=== PATIENT | male | born 1970 | race Caucasian/White ===

== ENCOUNTER 2017-06-29 00:19 | Emergency (ER) | payer OTHER ==
[2017-06-29 00:57] LABS: #Basophils 0.1 thou/uL (0.0-0.2); #Eosinphils 0.2 thou/uL (0.0-0.7); #Lymphocytes 2.4 thou/uL (1.20-3.40); #Monocytes 0.6 thou/uL (0.11-0.59); #Neutrophils 5.2 thou/uL (1.40-6.50); %Basophils 1.3 % (0.0-1.0); %Lymphocytes 27.9 % (21.0-51.0); %Monocytes 7.1 % (0.0-10.0); %Neutrophils 61.8 % (42.0-75.0); Hemoglobin 15.8 g/dL (14.0-18.0); Mean Corpuscular HGB CONC 36.3 g/dL (32.0-36.0); Mean Corpuscular Hemoglobin 30.8 pg (27.0-31.0); Mean Corpuscular Volume 84.9 fl (80.0-94.0); Mean Platelet Volume 7.3 fL (7.4-10.4); Platelet Count 300 thou/uL (130-400); RBC Distribution Width 11.4 % (11.5-14.5); Red Blood Cell (RBC) Count 5.14 mill/uL (4.70-6.10); White Blood Cell (WBC) Count 8.5 thou/uL (4.8-10.8)
[2017-06-29 01:19] LABS: ALT (SGPT) 32 U/L (8-55); AST (SGOT) 15 U/L (5-34); Alkaline Phosphatase 62 U/L (40-150); Anion Gap 15 mmol/L (10-20); BUN (Urea Nitrogen) 18 mg/dL (8.9-20.6); Bilirubin, Total 0.3 mg/dL (0.2-1.2); Calc. Creatinine Clearance 0 mL/min (70-130); Calcium 9.5 mg/dL (7.8-10.44); Carbon Dioxide 27 mmol/L (22-29); Chloride 102 mmol/L (98-107); Estimated GFR-MDRD 70; Globulin 2.6 g/dL (2.4-3.5); Glucose 230 mg/dL (70-105); Lipase 92 U/L (8-78); Magnesium 2.1 mg/dL (1.6-2.6); Potassium 3.8 mmol/L (3.5-5.1); Protein, Total 6.6 g/dL (6.0-8.3); Sodium 140 mmol/L (136-145)
== END 2017-06-29 02:01 | disposition home or self-care (01) ==
LOC: SCSER 00:19
DX: K29.00 Acute gastritis without bleeding (principal); E11.9 Type 2 diabetes mellitus without complications; Z79.4 Long term (current) use of insulin; Z79.899 Other long term (current) drug therapy
CPT/HCPCS: 36416; 80053; 83690; 83735; 85025; 93005; 96360

== ENCOUNTER 2017-08-01 16:11 | Emergency (ER) | payer OTHER ==
[2017-08-01] MEDS ORDERED: Ibuprofen 800 MG TAB ONE (16:39)
--- NOTE | 2017-08-01 16:50 | RAD ---
AP PELVIS ONE VIEW: 08/01/17 HISTORY: 47-year-old male with history of hip pain following a fall last night. Primarily right side pain. FINDINGS/IMPRESSION: No fracture, dislocation, or other significant acute osseous abnormality. POS: [facility]
== END 2017-08-01 16:45 | disposition home or self-care (01) ==
LOC: SCSER 16:11
DX: S70.01XA Contusion of right hip, initial encounter (principal); E11.9 Type 2 diabetes mellitus without complications; Z79.4 Long term (current) use of insulin; Z79.899 Other long term (current) drug therapy; W01.0XXA Fall on same level from slipping, tripping and stumbling without subsequent striking against object, initial encounter
CPT/HCPCS: 72170

== ENCOUNTER 2018-06-24 20:18 | Observation (INO) | payer OTHER ==
[2018-06-24 20:48] LABS: #Basophils 0.1 thou/uL (0.0-0.2); #Eosinphils 0.1 thou/uL (0.0-0.7); #Monocytes 0.6 thou/uL (0.11-0.59); #Neutrophils 4.8 thou/uL (1.40-6.50); %Basophils 1.1 % (0.0-1.0); %Eosinophils 1.1 % (0.0-10.0); %Monocytes 7.7 % (0.0-10.0); %Neutrophils 63.1 % (42.0-75.0); Hemoglobin 15.8 g/dL (14.0-18.0); Mean Corpuscular HGB CONC 34.6 g/dL (32.0-36.0); Mean Corpuscular Hemoglobin 29.8 pg (27.0-31.0); Mean Corpuscular Volume 85.9 fL (78.0-98.0); Mean Platelet Volume 7.3 fL (7.4-10.4); Platelet Count 237 thou/uL (130-400); Red Blood Cell (RBC) Count 5.32 mill/uL (4.70-6.10); White Blood Cell (WBC) Count 7.5 thou/uL (4.8-10.8)
[2018-06-24 21:06] LABS: ALT (SGPT) 27 U/L (8-55); AST (SGOT) 12 U/L (5-34); Albumin 4.1 g/dL (3.5-5.0); Alkaline Phosphatase 61 U/L (40-150); Anion Gap 17 mmol/L (10-20); BUN (Urea Nitrogen) 16 mg/dL (8.9-20.6); Bilirubin, Total 0.4 mg/dL (0.2-1.2); CK (CPK) 100 U/L (30-200); Calc. Creatinine Clearance 0 mL/min (70-130); Calcium 9.2 mg/dL (7.8-10.44); Carbon Dioxide 21 mmol/L (22-29); Chloride 101 mmol/L (98-107); Estimated GFR-MDRD 68; Globulin 2.8 g/dL (2.4-3.5); Glucose 293 mg/dL (70-105); Potassium 3.8 mmol/L (3.5-5.1); Protein, Total 6.9 g/dL (6.0-8.3); Sodium 135 mmol/L (136-145)
--- NOTE | 2018-06-24 21:17 | RAD ---
RADIOGRAPH CHEST 1 VIEW: 06/24/18 HISTORY: 48-year-old male with dyspnea. FINDINGS: There are no air space densities, pulmonary edema, pneumothorax, or cardiomegaly. The lateral costop hrenic angles are sharp. IMPRESSION: No acute cardiopulmonary findings. jn [] POS: JIN
--- NOTE | 2018-06-24 21:18 | CT ---
CT BRAIN NONCONTRAST: 06/24/18 HISTORY: 48-year-old male with altered mental status and headache. FINDINGS: There is no midline shift or any other mass effect. There is no evidence of acute intracranial hemor rhage, large cortical infarct, obstructive hydrocephalus, or extraaxial fluid collection. The calvar ium is intact. IMPRESSION: No acute intracranial findings. jn [] POS: JIN
[2018-06-24] MEDS ORDERED: Acetaminophen 500 MG TAB ONE (21:25)
[2018-06-24 21:33] LABS: Acetaminophen Less than 6.0 mcg/mL (10.0-30.0); Alcohol Less than 10 mg/dL (Less than 10); Salicylate Less than 8.0 mg/dL (15.0-30.0)
[2018-06-24] MEDS ORDERED: Aspirin 325 MG TAB ONE ×2 (22:04)
[2018-06-24 22:23] LABS: Bilirubin Negative (Negative); Blood, Urine Negative (Negative); Clarity Slightly Cloudy (Clear); Glucose, Urine (Dipstick) >=1000 mg/dL (Negative); Leukocyte Negative (Negative); Nitrite Negative (Negative); Protein, Urine (Dipstick) Negative (Neg-Trace); Urobilinogen 0.2 mg/dL (0.2-1.0); pH, Urine 5.5 (5.0-9.0)
[2018-06-24 22:32] LABS: Amphetamine Not Detected (NotDetected); Barbiturates Screen Not Detected (NotDetected); Benzodiazepine Screen Not Detected (NotDetected); Cocaine Metabolite Screen Not Detected (NotDetected); Medtox Control Line Valid? VALID (VALID); Methadone Not Detected (NotDetected); Methamphetamine Not Detected (NotDetected); Opiate Screen Not Detected (NotDetected); Oxycodone Screen Not Detected (NotDetected); Phencyclidine (PCP) Not Detected (NotDetected); THC/Cannabinoid Screen Not Detected (NotDetected); Tricyclic Screen Not Detected (NotDetected)
[2018-06-24 23:50] LABS: Troponin I Less than 0.010 ng/mL (< 0.028)
[2018-06-25 00:21] VITALS: BMI 34.2
[2018-06-25 01:00] LABS: Lactic Acid 0.9 mmol/L (0.5-2.2)
[2018-06-25 03:04] LABS: Troponin I Less than 0.010 ng/mL (< 0.028)
[2018-06-25] MEDS ORDERED: Dextrose 5% in Water 1,000 ML IV PRN ×2 (05:45→07:44)
[2018-06-25] MEDS ORDERED: Dextrose 50% Abboject 50 ML SYRINGE IVP PRN (05:45)
[2018-06-25] MEDS ORDERED: Insulin Regular 300 UNITS/3 ML VIAL SC PRN (05:45)
[2018-06-25] MEDS ORDERED: Cepastat Lozenges 1 LOZ PO PRN (07:44)
[2018-06-25] MEDS ORDERED: hydrALAZINE 20 MG/ML VIAL SLOW IVP PRN (07:44)
[2018-06-25] MEDS ORDERED: Ondansetron ODT 4 MG TAB PO PRN (07:44)
[2018-06-25] MEDS ORDERED: Ondansetron PF 4 MG/2 ML Vial IVP PRN (07:44)
[2018-06-25] MEDS ORDERED: Loratadine 10 MG TAB PO PRN (07:44)
[2018-06-25] MEDS ORDERED: Bisacodyl 10 MG SUPP PR PRN (07:44)
[2018-06-25] MEDS ORDERED: Sodium Chloride 0.65% Nasal 44 ML BOT EA NARE PRN (07:44)
[2018-06-25] MEDS ORDERED: Diabetic Tussin 200 MG/10 ML UDCUP PO PRN (07:44)
[2018-06-25] MEDS ORDERED: Dextrose 50% Abboject 50 ML SYRINGE SLOW IVP PRN (07:44)
[2018-06-25] MEDS ORDERED: Calcium Carbonate 500 MG ChewTAB PO PRN (07:44)
[2018-06-25] MEDS ORDERED: Senokot S 8.6-50 MG TAB PO PRN (07:44)
[2018-06-25] MEDS ORDERED: HumaLOG 300 UNITS/3 ML VIAL SC PRN (07:44)
[2018-06-25] MEDS ORDERED: HYDROcodone/Acetaminophen 5/325 mg Tablet PO PRN (07:44)
[2018-06-25] MEDS ORDERED: Loperamide HCl 2 MG CAP PO PRN (07:44)
[2018-06-25] MEDS ORDERED: Artificial Tears 18 DROP/0.9 ML EA EYE PRN (07:44)
[2018-06-25] MEDS ORDERED: Zolpidem Tartrate 5 MG TAB PO PRN (07:44)
[2018-06-25] MEDS ORDERED: Acetaminophen 325 MG TAB PO PRN (07:44)
[2018-06-25] MEDS ORDERED: Eucerin (Mineral Oil/Petrolatum,White) 30 gm Jar TOP PRN (07:44)
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
[2018-06-25] MEDS: Sodium Chloride 0.9% 1,000 ML IV SCH ×2 (08:55→21:07)
[2018-06-25 09:01] LABS: Hemoglobin A1c 11.2 % (4.0-6.0)
[2018-06-25] MEDS: Famotidine 20 MG TAB PO SCH ×2 (09:02→21:07)
[2018-06-25 09:13] LABS: Cardiac Risk 7.7 (Less than 4.5)
--- NOTE | 2018-06-25 12:13 | ULT ---
BILATERAL CAROTID DUPLEX ULTRASOUND: DATE: 06/25/18 HISTORY: Syncope, TIA. TECHNIQUE: Lawson scale ultrasound with color flow and spectral Doppler imaging of the extracranial carotid artery systems performed bilaterally. FINDINGS: A small amount of plaque is noted. The peak systolic velocity in the right ICA measures 72 cm/second with an end-diastolic velocity of 2 4 cm/second and a systolic ratio of 0.81. The peak systolic velocity in the left ICA measures 92 cm/second with an end-diastolic velocity of 36 cm/second and a systolic ratio of 0.98. Flow in both vertebral arteries remains antegrade. IMPRESSION: No evidence of hemodynamically significant stenosis. POS: OFF
--- NOTE | 2018-06-25 12:56 | MRI ---
[facility] brain noncontrast HISTORY: Syncope. FINDINGS: There is no evidence of acute intracranial hemorrhage or infarct. The ventricles appear nor mal in size, shape and position. There is no mass effect or shift of midline structures. Mucosal opac ification of the left mastoid air cells is apparent. IMPRESSION: No acute intracranial abnormalities are demonstrated. Mucosal thickening within the mastoid air cells. Cause is not evident.
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
[2018-06-25] MEDS: HumaLOG 300 UNITS/3 ML VIAL SC PRN ×2 (13:39→17:50)
[2018-06-25] MEDS ORDERED: Pramipexole Di-HCl 1 MG TAB PO SCH (21:00)
[2018-06-25] MEDS ORDERED: PRAMIPEXOLE DI HCL PO SCH (21:00)
[2018-06-25] MEDS ORDERED: metFORMIN 500 MG TAB PO SCH ×2 (21:00)
[2018-06-25] MEDS ORDERED: Atorvastatin Calcium 40 MG TAB PO SCH (21:00)
[2018-06-26] MEDS: Sodium Chloride 0.9% 1,000 ML IV SCH (01:40)
[2018-06-26] MEDS: HumaLOG 300 UNITS/3 ML VIAL SC PRN ×2 (06:10→12:24)
[2018-06-26] MEDS ORDERED: metFORMIN 500 MG TAB PO SCH (08:00)
[2018-06-26] MEDS ORDERED: INSULIN DETEMIR 25 UNIT SC SCH (09:00)
[2018-06-26] MEDS ORDERED: Insulin Glargine 25 UNITS in Pre-Filled Syringe 1 EACH SC SCH (09:00)
[2018-06-26] MEDS ORDERED: Aspirin 325 MG TAB PO SCH (09:00)
[2018-06-26] MEDS ORDERED: Insulin Glargine 35 UNITS in Pre-Filled Syringe 1 EACH SC SCH (09:00)
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
[2018-06-26] MEDS: Famotidine 20 MG TAB PO SCH (10:38)
--- NOTE | 2018-06-26 10:38 | PDOC.PN ---
- Subjective Encounter Start Date: 06/26/18 Encounter Start Time: 10:38 Patient seen and examined. No new complaints. No overnight events - Objective Resuscitation Status - Order Detail: 06/25/18 07:39 Resuscitation Status Routine Resuscitation Status: FULL: Full Resuscitation MAR Reviewed: Yes Vital Signs & Weight: Vital Signs (12 hours) Temp Pulse Resp BP Pulse Ox 06/26/18 07:54 97.6 F 71 16 115/69 97 06/26/18 04:00 97.4 F L 66 16 115/73 96 06/26/18 00:00 98.2 F 67 16 108/59 L 97 Weight Admit Weight 225 lb 8 oz Weight 225 lb 8 oz I&O: 06/25/18 06/26/18 06/27/18 06:59 06:59 06:59 Intake Total 240 4453 Balance 240 4453 Result Diagrams: 06/24/18 20:30 06/24/18 20:30 Additional Labs: Accuchecks 06/26/18 06/25/18 06/25/18 05:51 16:56 10:39 POC Glucose 314 H 392 H 396 H EKG Reviewed by me: Yes Phys Exam - Physical Examination Constitutional: NAD HEENT: PERRLA, moist MMs, sclera anicteric Neck: no JVD, supple Respiratory: no wheezing, no rales, no rhonchi Cardiovascular: RRR, no significant murmur, no rub Gastrointestinal: soft, non-tender, no distention, positive bowel sounds Musculoskeletal: no edema, pulses present Neurological: non-focal, normal sensation, moves all 4 limbs Lymphatic: no nodes Psychiatric: normal affect, A&O x 3 Skin: no rash, normal turgor Dx/Plan (1) TIA (transient ischemic attack) Code(s): G45.9 - TRANSIENT CEREBRAL ISCHEMIC ATTACK, UNSPECIFIED Status: Acute (2) Diabetes type 2, uncontrolled Code(s): E11.65 - TYPE 2 DIABETES MELLITUS WITH HYPERGLYCEMIA Status: Chronic (3) Dyslipidemia Code(s): E78.5 - HYPERLIPIDEMIA, UNSPECIFIED Status: Chronic (4) KINGA (obstructive sleep apnea) Code(s): G47.33 - OBSTRUCTIVE SLEEP APNEA (ADULT) (PEDIATRIC) Status: Chronic (5) Obesity (BMI 30-39.9) Code(s): E66.9 - OBESITY, UNSPECIFIED Status: Chronic - Plan cont current plan of care * medication reviewed as below * symptomatic treatment * see discharge ang. Review of Systems - Review of Systems ENT: negative: Ear Pain, Ear Discharge, Nose Pain, Nose Discharge, Nose Congestion, Mouth Pain, Mouth Swelling, Throat Pain, Throat Swelling, Other Respiratory: negative: Cough, Dry, Shortness of Breath, Hemoptysis, SOB with Excertion, Pleuritic Pain, Sputum, Wheezing Cardiovascular: negative: chest pain, palpitations, orthopnea, paroxysmal nocturnal dyspnea, edema, light headedness, other Gastrointestinal: negative: Nausea, Vomiting, Abdominal Pain, Diarrhea, Constipation, Melena, Hematochezia, Other Genitourinary: negative: Dysuria, Frequency, Incontinence, Hematuria, Retention , Other Musculoskeletal: negative: Neck Pain, Shoulder Pain, Arm Pain, Back Pain, Hand Pain, Leg Pain, Foot Pain, Other - Medications/Allergies Allergies/Adverse Reactions: Allergies Allergy/AdvReac Type Severity Reaction Status Date / Time No Known Allergies Allergy Unverified 06/25/18 01:32 Medications: Current Medications Acetaminophen (Tylenol) 650 mg PO Q4H PRN PRN Reason: Headache/Fever/Mild Pain (1-3) Hydrocodone Bitart/Acetaminophen ([place] 5/325) 1 tab PO Q4H PRN PRN Reason: Moderate Pain (4-6) Artificial Tears (Tears Naturale) 2 drop EA EYE PRN PRN PRN Reason: Dry Eyes Aspirin (Aspirin) 325 mg PO DAILY [facility] Atorvastatin Calcium (Lipitor) 40 mg PO HS [facility] Last Admin: 06/25/18 21:07 Dose: 40 mg Bisacodyl (Dulcolax) 10 mg [place] DAILYPRN PRN PRN Reason: Constipation Calcium Carbonate (Tums) 1,000 mg PO Q4H PRN PRN Reason: Heartburn or Indigestion Dextrose/Water (Dextrose 50%) 25 gm SLOW IVP PRN PRN PRN Reason: Hypoglycemia Famotidine (Pepcid) 20 mg PO BID [facility] Last Admin: 06/25/18 21:07 Dose: 20 mg Glucagon (Glucagon) 1 mg IM PRN PRN PRN Reason: Hypoglycemia Guaifenesin (Robitussin Sf) 200 mg PO Q4H PRN PRN Reason: Cough Hydralazine HCl (Apresoline) 10 mg SLOW IVP Q4H PRN PRN Reason: SBP > 180 and HR < 70 Dextrose/Water (D5w) 1,000 mls @ 0 mls/hr IV .Q0M PRN PRN Reason: Hypoglycemia Sodium Chloride (Normal Saline 0.9%) 1,000 mls @ 100 mls/hr IV .Q10H [facility] Last Admin: 06/26/18 01:40 Dose: Not Given Insulin Glargine 35 units/ (Miscellaneous Medication) 0.35 mls @ 0 mls/hr SC QAM [facility] Insulin Human Lispro (Humalog) 0 units SC .MODERATE SLIDING SC PRN PRN Reason: Moderate Correctional Scale Last Admin: 06/26/18 06:10 Dose: 8 unit Insulin Human Lispro (Humalog) 0 units SC .BEDTIME SLIDING SC PRN PRN Reason: Bedtime Correctional Scale Last Admin: 06/25/18 21:09 Dose: 5 unit Loperamide HCl (Imodium) 2 mg PO PRN PRN PRN Reason: Diarrhea/Loose Stools Loratadine (Claritin) 10 mg PO DAILYPRN PRN PRN Reason: Sinus Symptoms Metformin HCl (Glucophage) 1,000 mg PO BID-[facility] Mineral Oil/White Petrolatum (Eucerin Cream) 0 gm TOP BIDPRN PRN PRN Reason: Dry Skin Ondansetron HCl (Zofran Odt) 4 mg PO Q6H PRN PRN Reason: Nausea/Vomiting Ondansetron HCl (Zofran) 4 mg IVP Q6H PRN PRN Reason: Nausea/Vomiting Pramipexole Dihydrochloride (Mirapex) 1 mg PO HS [facility] Senna/Docusate Sodium (Senokot S) 2 tab PO BID PRN PRN Reason: Constipation Sertraline HCl (Zoloft) 25 mg PO DAILY [facility] Sodium Chloride ([place] Nasal [place] 0.65%) 0 ml EA NARE QIDPRN PRN PRN Reason: Nasal Congestion Sodium Chloride (Flush - Normal Saline) 10 ml IVF Q12HR [facility] Last Admin: 06/25/18 21:15 Dose: Not Given Sodium Chloride (Flush - Normal Saline) 10 ml IVF PRN PRN PRN Reason: Saline Flush Throat Lozenges (Cepastat Lozenges) 1 elliot PO Q2H PRN PRN Reason: Sore Throat Zolpidem Tartrate (Ambien) 5 mg PO HSPRN PRN PRN Reason: Insomnia
[2018-06-26 11:58] VITALS: BP 123/84; TEMP 97.8
[2018-06-26] MEDS ORDERED: Pramipexole Di-HCl 1 MG TAB PO SCH (21:00)
--- NOTE | 2018-06-30 09:57 | EEG ---
Referring Physician: Angelia BRADSHAW EEG # [id number] TEST TYPE: ROUTINE PORTABLE INPATIENT REPORT: AN EEG USING THE INTERNATIONAL TEN-TWENTY SYSTEM OF ELECTRODE PLACEMENT WAS PERFORMED. The best waking background is an 8 hertz alpha frequency. There is some intermittent slowing seen. No epileptiform features were present. Photic stimulation was unremarkable. IMPRESSION: THIS IS AN UNREMARKABLE EEG. Shellfish Weigher: OTILIA Production Support Consultant: EEG.IAN SOLIS
== END 2018-06-26 14:32 | disposition home or self-care (01) ==
LOC: SCSER 20:18 → 2SE 22:30
PROVIDERS: ADMIT Hospitalist; ATTEND Hospitalist
DX: G45.9 Transient cerebral ischemic attack, unspecified (principal); R41.82 Altered mental status, unspecified; R55 Syncope and collapse; I10 Essential (primary) hypertension; E66.01 Morbid (severe) obesity due to excess calories; F41.8 Other specified anxiety disorders; F32.9 Major depressive disorder, single episode, unspecified; G47.33 Obstructive sleep apnea (adult) (pediatric); E78.5 Hyperlipidemia, unspecified; Z68.34 Body mass index [BMI] 34.0-34.9, adult; Z79.82 Long term (current) use of aspirin; Z79.84 Long term (current) use of oral hypoglycemic drugs; Z79.899 Other long term (current) drug therapy
CPT/HCPCS: 36415; 36416; 70450; 70551; 71045; 80053; 80061; 80306; 80307; 81003; 82140; 82550; 83036; 83605; 84443; 84484; 85025; 90471; 90686; 90732; 93306; 93880; 95816; 95819; 96360; 96361; G0008; G0009; G0378; J1815; J1825

== ENCOUNTER 2018-07-04 23:25 | Emergency (ER) | payer OTHER ==
[2018-07-04] MEDS ORDERED: Ketorolac Tromethamine 30 MG/ML VIAL ONE (23:52)
[2018-07-04] MEDS ORDERED: Ondansetron PF 4 MG/2 ML Vial ONE (23:52)
[2018-07-05 00:17] LABS: Bilirubin Negative (Negative); Blood, Urine Negative (Negative); Clarity Clear (Clear); Glucose, Urine (Dipstick) 500 mg/dL (Negative); Leukocyte Negative (Negative); Nitrite Negative (Negative); Protein, Urine (Dipstick) Negative (Neg-Trace); Specific Gravity, Urine 1.015 (1.005-1.030)
[2018-07-05 00:33] LABS: #Basophils 0.1 thou/uL (0.0-0.2); #Eosinphils 0.2 thou/uL (0.0-0.7); #Lymphocytes 2.5 thou/uL (1.20-3.40); #Monocytes 0.6 thou/uL (0.11-0.59); #Neutrophils 5.7 thou/uL (1.40-6.50); %Basophils 1.1 % (0.0-1.0); %Eosinophils 1.9 % (0.0-10.0); %Lymphocytes 27.4 % (21.0-51.0); %Monocytes 6.8 % (0.0-10.0); %Neutrophils 62.8 % (42.0-75.0); Hemoglobin 15.2 g/dL (14.0-18.0); Mean Corpuscular HGB CONC 34.9 g/dL (32.0-36.0); Mean Corpuscular Hemoglobin 30.1 pg (27.0-31.0); Mean Corpuscular Volume 86.4 fL (78.0-98.0); Mean Platelet Volume 7.4 fL (7.4-10.4); Platelet Count 213 thou/uL (130-400); RBC Distribution Width 11.7 % (11.5-14.5); Red Blood Cell (RBC) Count 5.05 mill/uL (4.70-6.10); White Blood Cell (WBC) Count 9.1 thou/uL (4.8-10.8)
[2018-07-05 00:57] LABS: ALT (SGPT) 31 U/L (8-55); AST (SGOT) 21 U/L (5-34); Albumin 3.8 g/dL (3.5-5.0); Alkaline Phosphatase 52 U/L (40-150); Anion Gap 15 mmol/L (10-20); BUN (Urea Nitrogen) 19 mg/dL (8.9-20.6); Bilirubin, Total 0.4 mg/dL (0.2-1.2); Calc. Creatinine Clearance 0 mL/min (70-130); Calcium 9.7 mg/dL (7.8-10.44); Carbon Dioxide 26 mmol/L (22-29); Chloride 101 mmol/L (98-107); Estimated GFR-MDRD 62; Globulin 2.4 g/dL (2.4-3.5); Glucose 272 mg/dL (70-105); Potassium 3.8 mmol/L (3.5-5.1); Protein, Total 6.2 g/dL (6.0-8.3); Sodium 138 mmol/L (136-145)
--- NOTE | 2018-07-05 07:30 | CT ---
CT ABDOMEN AND PELVIS NONCONTRAST CT LUMBAR SPINE NONCONTRAST WITH REFORMATTED IMAGING: Date: 07/04/18 INDICATION: Back pain, flank pain. History of urolithiasis. Reference made to 10/24/12. FINDINGS: There is redemonstration of multiple bilateral renal calculi. There is mild right hydroureteronephros is, which is resultant of distal right ureteral calculus that measures 5.0 mm. No left side obstructi ve uropathy. Incidental note is hepatic steatosis. There is a mild anterior wedge compression fracture deformity of L1, although given mild end plate os teophytosis, and absence of surrounding, paraspinous edema, this is favored to reflect a chronic proc ess. No significant subluxation. Evaluation is otherwise limited on the basis of noncontrast technique. There are mild disk bulges at L3-4, L4-5, and L5-S1 levels. Which result in mild effacement of the th ecal sac. Mild degenerative hypertrophy of the bilateral facet joints at these levels is also demons trated. IMPRESSION: 1. Mildly obstructing 5 mm distal right ureteral calculus. 2. Numerous bilateral renal calculi are redemonstrated. 3. Mild chronic-appearing anterior wedge compression deformity of deformity of L1. POS: [facility]
--- NOTE | 2018-07-08 12:21 | CT ---
CT LUMBAR SPINE: HISTORY: Back pain. Axial images were obtained with coronal and sagittal reconstructions. FINDINGS: Multiple bilateral renal calculi seen. There continues to be a right hydroureteronephrosis with distal right ureteral calculus seen on patie nt's CT from 07/04/2018. An old compression fracture seen in the superior and inferior anterior aspect of the L1 vertebral lev el. These appear to be old. No acute lumbar spine abnormality seen. IMPRESSION: Continued presence of distal right ureteral calculus. Transcribed Date/Time: 07/08/2018 12:24 PM
== END 2018-07-05 01:12 | disposition home or self-care (01) ==
LOC: SCSER 23:25
DX: N13.2 Hydronephrosis with renal and ureteral calculous obstruction (principal); E11.9 Type 2 diabetes mellitus without complications; E78.5 Hyperlipidemia, unspecified; F32.9 Major depressive disorder, single episode, unspecified; I10 Essential (primary) hypertension; Z79.4 Long term (current) use of insulin; Z79.82 Long term (current) use of aspirin; Z79.899 Other long term (current) drug therapy
CPT/HCPCS: 72131; 74176; 80053; 81003; 85025; 96374; 96375; J1885; J2405

== ENCOUNTER 2018-08-02 13:07 | Outpatient (CLI) | payer OTHER ==
--- NOTE | 2018-08-02 14:26 | MRI ---
MRI CERVICAL SPINE WITHOUT CONTRAST:: HISTORY: Neck Pain, cervical radiculopathy. COMPARISON: None. FINDINGS: The craniocervical junction is unremarkable. Cord signal evaluation is limited by patient motion. C1-2:No significant stenosis. C2-3:Uncinate process hypertrophy results in mild right foraminal narrowing. No high-grade central ca nal or left foraminal stenosis. C3-4:No significant stenosis. C4-5: Small right paracentral disc protrusion. Slight effacement of the right ventral hemicord. Uncin ate process hypertrophy results in mild right foraminal narrowing. No high-grade left foraminal stenosis. C5-6:Broad-based left asymmetric disc protrusion with mild cord compromise and moderate central canal stenosis. Moderate left and mild right neural foraminal narrowing. C6-7: Disc bulge slightly effaces the ventral thecal sac. C7-T1:No significant stenosis. IMPRESSION: Multilevel degenerative change of cervical spine, as outlined above. Transcribed Date/Time: 08/02/2018 2:35 PM
--- NOTE | 2018-08-02 15:05 | MRI ---
MR the lumbar spine without contrast INDICATION: Lumbar back pain radiating down both lower extremities with numbness ongoing for 10 month s. COMPARISON: CT of the lumbar spine dated July 04, 2018. TECHNIQUE: Multiplanar multisequence MR images were obtained of lumbar spine without IV contrast. FINDINGS: Bone marrow: Bone marrow signal intensity appears within normal limits. There is a small suspected lluvia ny hemangioma within the central aspect of T11. Distal spinal cord and conus: Normal. The conus seen to terminate at L1. Visualized retroperitoneum and paraspinal soft tissues: Normal. Vertebral levels: L5-S1: There is no appreciable central canal or neural foraminal narrowing. There is a small broad-ba sed disc bulge. L4-5: There is a mild broad-based disc bulge with mild neural foraminal encroachment but without evid ence of impingement. L3-4: There is mild facet joint degenerative change and broad-based disc bulge. There is mild neural foraminal encroachment from the disc bulge without definite evidence of impingement. L2-3: There is a mild broad-based bulge but no appreciable central canal or neural foraminal narrowin g. L1-L2: No appreciable central canal or neural foraminal narrowing. T12-L1: No appreciable central canal or neural foraminal narrowing. IMPRESSION: 1. Mild spondylosis of the lumbar spine with mild neural foraminal encroachment at L4-5 and L3-4 due to broad-based disc bulges. No appreciable neural foraminal impingement is demonstrated.
== END 2018-08-02 13:08 | disposition home or self-care (01) ==
LOC: SCSMRI 13:07
PROVIDERS: ATTEND Neurological Surgery
DX: M47.22 Other spondylosis with radiculopathy, cervical region (principal); M48.062 Spinal stenosis, lumbar region with neurogenic claudication; M47.816 Spondylosis without myelopathy or radiculopathy, lumbar region; M51.26 Other intervertebral disc displacement, lumbar region
CPT/HCPCS: 72141; 72148

== ENCOUNTER 2018-08-22 19:06 | Emergency (ER) | payer OTHER ==
[2018-08-22] MEDS ORDERED: Ketorolac Tromethamine 30 MG/ML VIAL ONE (19:26)
[2018-08-22] MEDS ORDERED: Ondansetron PF 4 MG/2 ML Vial ONE (19:26)
[2018-08-22 19:29] LABS: Bilirubin Negative (Negative); Blood, Urine Negative (Negative); Clarity Clear (Clear); Glucose, Urine (Dipstick) 100 mg/dL (Negative); Leukocyte Trace (Negative); Nitrite Negative (Negative); Protein, Urine (Dipstick) Negative (Neg-Trace); Specific Gravity, Urine 1.015 (1.005-1.030); Urobilinogen 0.2 mg/dL (0.2-1.0); pH, Urine 7.5 (5.0-9.0)
[2018-08-22 19:31] LABS: Bacteria/HPF 1+ HPF (None Seen); RBC/HPF 0-3 HPF (0-3); Squamous Epithelial 0-3 HPF (0-3)
[2018-08-22 19:43] LABS: #Basophils 0.1 thou/uL (0.0-0.2); #Lymphocytes 1.1 thou/uL (1.20-3.40); #Monocytes 0.9 thou/uL (0.11-0.59); #Neutrophils 10.7 thou/uL (1.40-6.50); %Basophils 0.6 % (0.0-1.0); %Eosinophils 0.3 % (0.0-10.0); %Lymphocytes 8.7 % (21.0-51.0); %Monocytes 6.8 % (0.0-10.0); %Neutrophils 83.7 % (42.0-75.0); Hemoglobin 15.2 g/dL (14.0-18.0); Mean Corpuscular HGB CONC 36.5 g/dL (32.0-36.0); Mean Corpuscular Hemoglobin 31.5 pg (27.0-31.0); Mean Corpuscular Volume 86.2 fL (78.0-98.0); Mean Platelet Volume 6.3 fL (7.4-10.4); Platelet Count 236 thou/uL (130-400); RBC Distribution Width 12.4 % (11.5-14.5); Red Blood Cell (RBC) Count 4.82 mill/uL (4.70-6.10); White Blood Cell (WBC) Count 12.8 thou/uL (4.8-10.8)
[2018-08-22 19:59] LABS: ALT (SGPT) 48 U/L (8-55); AST (SGOT) 18 U/L (5-34); Alkaline Phosphatase 53 U/L (40-150); Anion Gap 15 mmol/L (10-20); BUN (Urea Nitrogen) 16 mg/dL (8.9-20.6); Bilirubin, Total 0.9 mg/dL (0.2-1.2); Calc. Creatinine Clearance 0 mL/min (70-130); Calcium 9.4 mg/dL (7.8-10.44); Carbon Dioxide 24 mmol/L (22-29); Chloride 101 mmol/L (98-107); Estimated GFR-MDRD 51; Globulin 2.7 g/dL (2.4-3.5); Glucose 169 mg/dL (70-105); Potassium 4.2 mmol/L (3.5-5.1); Protein, Total 6.7 g/dL (6.0-8.3); Sodium 136 mmol/L (136-145)
--- NOTE | 2018-08-22 21:24 | CT ---
CT ABDOMEN AND PELVIS WITHOUT CONTRAST: Date: 08/22/18 COMPARISON: 07/04/18. HISTORY: Left flank pain. History of kidney stones. TECHNIQUE: Multiple contiguous axial images were obtained in a CT of the abdomen and pelvis without contrast. Co cecelia reformats were performed. FINDINGS: There is a 5 mm calcification in the distal left ureter with mild left hydronephrosis and hydroureter . There are multiple nonshadowing calcifications in both kidneys, also measuring up to 5 mm in size. No right-sided hydronephrosis is seen. The liver, gallbladder, adrenal glands, spleen, and pancreas are unremarkable, although evaluation is limited without IV contrast. The large and small bowel are unremarkable. The appendix is unremarkable. No abdominal or pelvic lymp hadenopathy seen. Mild degenerative changes are seen in the spine. The visualized inferior thorax and abdominal wall so ft tissues are unremarkable. IMPRESSION: 1. Left distal ureteral calcification with mild left hydronephrosis. 2. Nonobstructing bilateral renal calcifications. POS: C
== END 2018-08-22 20:56 | disposition home or self-care (01) ==
LOC: SCSER 19:06
DX: N13.2 Hydronephrosis with renal and ureteral calculous obstruction (principal); E78.5 Hyperlipidemia, unspecified; E11.9 Type 2 diabetes mellitus without complications; I10 Essential (primary) hypertension; Z79.82 Long term (current) use of aspirin; Z79.899 Other long term (current) drug therapy
CPT/HCPCS: 74176; 80053; 81003; 81015; 85025; 96374; 96375; J1885; J2405

== ENCOUNTER 2019-01-17 07:18 | Day surgery (SDC) | payer OTHER ==
[2019-01-14 09:18] VITALS: BMI 34.9
[2019-01-17 08:33] LABS: #Eosinphils 0.3 thou/uL (0.0-0.7); #Lymphocytes 1.7 thou/uL (1.20-3.40); #Monocytes 0.5 thou/uL (0.11-0.59); #Neutrophils 4.7 thou/uL (1.40-6.50); %Basophils 0.3 % (0.0-1.0); %Eosinophils 3.5 % (0.0-10.0); %Lymphocytes 24.3 % (21.0-51.0); %Monocytes 7.1 % (0.0-10.0); %Neutrophils 64.8 % (42.0-75.0); Hemoglobin 15.3 g/dL (14.0-18.0); Mean Corpuscular HGB CONC 35.3 g/dL (32.0-36.0); Mean Corpuscular Hemoglobin 31.6 pg (27.0-31.0); Mean Corpuscular Volume 89.6 fL (78.0-98.0); Mean Platelet Volume 7.2 fL (7.4-10.4); Platelet Count 235 thou/uL (130-400); Red Blood Cell (RBC) Count 4.83 mill/uL (4.70-6.10); White Blood Cell (WBC) Count 7.2 thou/uL (4.8-10.8)
[2019-01-17 08:52] LABS: Anion Gap 12 mmol/L (10-20); BUN (Urea Nitrogen) 15 mg/dL (8.9-20.6); Calc. Creatinine Clearance 130 mL/min (70-130); Carbon Dioxide 25 mmol/L (22-29); Chloride 100 mmol/L (98-107); Estimated GFR-MDRD 77; Glucose 266 mg/dL (70-105); Potassium 3.7 mmol/L (3.5-5.1); Sodium 133 mmol/L (136-145)
[2019-01-17] MEDS ORDERED: Sodium Chloride 0.9% 10 ML ONE (10:44)
[2019-01-17] MEDS ORDERED: Fentanyl 100 MCG/2 ML VIAL ONE ×3 (10:47→12:39)
[2019-01-17] MEDS ORDERED: Midazolam HCl 2 mg/2 ml Vial ONE (10:47)
[2019-01-17] MEDS ORDERED: Insulin Regular 300 UNITS/3 ML VIAL ONE (10:56)
--- NOTE | 2019-01-17 12:27 | OP ---
DATE OF PROCEDURE: 01/17/2019 PHYSICIAN EXTENDER: Jaime Velásquez PA-C PROCEDURES PERFORMED: Anterior cervical diskectomy C5-C6, interbody arthrodesis, intervertebral biomechanical device, local morselized autograft, demineralized bone matrix, and anterior titanium instrumentation C5-C6. DESCRIPTION OF PROCEDURE: The patient was brought to the operating room and intubated. He was positioned supine with head in modest extension on a gel-filled donut. Incision was made in the right precervical area and dissected medial to the sternocleidomastoid muscle, identified the anterior cervical spine and the level was confirmed by x-ray. We placed distraction across C5-C6, completely removed the intervertebral disk decompressing the neural elements. Bony endplates were then decorticated for the purpose of arthrodesis and appropriate-sized intervertebral biomechanical PEEK device was brought into the field, filled with demineralized bone matrix and local morselized autograft, and tapped in place securely at C5-C6. Next, an anterior plate was brought into the field and secured to C5 and C6 using two 14 mm screws at each level. The wound was then extensively irrigated. MAC hemostasis was secured. The wound was closed in anatomic layers. Job ID: [id number]
[2019-01-17] MEDS ORDERED: HYDROcodone/Acetaminophen 5/325 mg Tablet ONE (14:16)
== END 2019-01-17 14:30 | disposition home or self-care (01) ==
LOC: SDC 07:18
PROVIDERS: ATTEND Neurological Surgery
PROC: 0RT30ZZ Resection of Cervical Vertebral Disc, Open Approach (ICD-10-PCS; principal; 2019-01-17)
PROC: 0RG10A0 Fusion of Cervical Vertebral Joint with Interbody Fusion Device, Anterior Approach, Anterior Column, Open Approach (ICD-10-PCS; principal; 2019-01-17)
DX: M47.22 Other spondylosis with radiculopathy, cervical region (principal); M50.122 Cervical disc disorder at C5-C6 level with radiculopathy; I10 Essential (primary) hypertension; E11.9 Type 2 diabetes mellitus without complications; Z79.4 Long term (current) use of insulin; Z79.899 Other long term (current) drug therapy
CPT/HCPCS: 36415; 36416; 76000; 80048; 85025; 93005; 93010; J0690; J1815; J2250; J3010; J3490

== ENCOUNTER 2019-02-01 11:06 | Outpatient (CLI) | payer OTHER ==
--- NOTE | 2019-02-01 11:30 | RAD ---
XR Cerv Sp Ap Lat STANDARD HISTORY: Follow-up postsurgery. Surgery reportedly 2 weeks ago. COMPARISON: None. FINDINGS: The vertebral bodies are normal in height. Anterior cervical fusion is noted with plate and screws at the C5-6 level. There is mild retropharyngeal soft tissue swelling. No other significant findings. IMPRESSION: Postop anterior cervical fusion at C5-6 still with retropharyngeal soft tissue swelling.
== END 2019-02-01 11:07 | disposition home or self-care (01) ==
LOC: TBSIIMAG 11:06
PROVIDERS: ATTEND Neurological Surgery
DX: M54.12 Radiculopathy, cervical region (principal); M79.89 Other specified soft tissue disorders; Z98.1 Arthrodesis status
CPT/HCPCS: 72040

== ENCOUNTER 2019-03-16 13:49 | Outpatient (CLI) | payer OTHER ==
--- NOTE | 2019-03-17 09:03 | RAD ---
EXAM: XR Cerv Sp Ap Lat STANDARD PROVIDED CLINICAL HISTORY: Cervical spondylosis without myelopathy. History of prior cervical spine surgery. COMPARISON: Limited 08/16/2018. FINDINGS: Postsurgical changes related to anterior cervical fusion are again noted with anterior plate and scre ws again transfixing the C5-6 level. No hardware complication is seen. Vertebral body heights and intervertebral disc spaces are within normal limits. Intradiscal prosthesis is present at C5-6 level. Prevertebral soft tissues again appear mildly increased. IMPRESSION: Stable postoperative changes related to anterior cervical fusion at the C5-6 level with stable mild p revertebral soft tissue swelling again present.
== END 2019-03-16 13:50 | disposition home or self-care (01) ==
LOC: BICRAD 13:49
PROVIDERS: ATTEND Neurological Surgery
DX: M47.812 Spondylosis without myelopathy or radiculopathy, cervical region (principal); Z98.890 Other specified postprocedural states; Z98.1 Arthrodesis status
CPT/HCPCS: 72040

== ENCOUNTER 2020-01-04 18:30 | Inpatient (IN) | payer OTHER ==
[2020-01-05] MEDS ORDERED: Morphine 4 MG/ML VIAL SLOW IVP PRN (00:37)
[2020-01-05] MEDS ORDERED: Ketorolac Tromethamine 30 MG/ML VIAL IVP PRN ×2 (00:38→06:24)
[2020-01-05] MEDS ORDERED: Ondansetron PF 4 MG/2 ML Vial IVP PRN ×2 (00:45→06:08)
[2020-01-05] MEDS ORDERED: Acetaminophen 325 MG TAB PO PRN ×2 (00:45→06:08)
[2020-01-05] MEDS ORDERED: Ondansetron ODT 4 MG TAB SL PRN (00:45)
[2020-01-05] MEDS ORDERED: Sodium Chloride 0.9% 1,000 ML IV SCH ×2 (00:45→06:30)
[2020-01-05] MEDS ORDERED: HYDROcodone/Acetaminophen 5/325 mg Tablet PO PRN ×3 (00:45→06:08)
[2020-01-05] MEDS ORDERED: Ketorolac Tromethamine 30 MG/ML VIAL ONE (02:19)
[2020-01-05] MEDS ORDERED: cefTRIAXone\\ROCEPHIN 1 GM VIAL ONE (02:20)
[2020-01-05] MEDS: Sodium Chloride 0.9% 1,000 ML IV SCH ×3 (02:25→21:41)
[2020-01-05] MEDS ORDERED: Morphine 2 MG/ML VIAL SLOW IVP PRN ×2 (06:08→06:23)
[2020-01-05] MEDS ORDERED: Guaifenesin DM 100-10/5 ML UDCUP PO PRN (06:08)
[2020-01-05] MEDS ORDERED: cloNIDine 0.1 MG TAB PO PRN (06:08)
[2020-01-05] MEDS ORDERED: hydrALAZINE 20 MG/ML VIAL SLOW IVP PRN (06:08)
[2020-01-05] MEDS ORDERED: Labetalol HCl 100 MG/20 ML VIAL SLOW IVP PRN (06:08)
[2020-01-05] MEDS ORDERED: Promethazine HCl 12.5 MG in Sodium Chloride 0.9% 50 ML IVPB PRN (06:08)
[2020-01-05] MEDS ORDERED: Dextrose 50% Abboject 50 ML SYRINGE SLOW IVP PRN (06:09)
[2020-01-05] MEDS ORDERED: Dextrose 5% in Water 1,000 ML IV PRN (06:09)
[2020-01-05] MEDS ORDERED: Electrolyte Replacement Protoc 1 EACH EACH FS SCH (06:15)
--- NOTE | 2020-01-05 06:21 | PDOC.HHP ---
Hospitalist HPI - History of Present Illness L abdominal/flank pain History of Present Illness: Patient is a 49 year old male with PMH T2DM who presents as transfer from [facility] for L sided abdominal/flank pain. Pain began this afternoon, associated with nausea and vomiting, 10/10, has a history of kidney stones. Imaging there revealed large L sided urethral stone w/ obstructive uropathy and hydronephrosis. pain somewhat responded to toradol and morphine but in general remains uncontrolled. ED physician discussed with Dr Parikh who requested patient transfer to this campus for consultation and surgical intervention likely today. Hospitalist ROS - Review of Systems Constitutional: denies: fever, chills, sweats, weakness, malaise, other Eyes: denies: pain, vision change, conjunctivae inflammation, eyelid inflammation, redness, other ENT: denies: ear pain, ear discharge, nose pain, nose discharge, nose congestion, mouth pain, mouth swelling, throat pain, throat swelling, other Respiratory: denies: cough, dry, shortness of breath, hemoptysis, SOB with excertion, pleuritic pain, sputum, wheezing, other Cardiovascular: denies: chest pain, palpitations, orthopnea, paroxysmal noc. dyspnea, edema, light headedness, other Gastrointestinal: reports: nausea, vomiting, abdominal pain. denies: diarrhea, constipation, melena, hematochezia, other Genitourinary: reports: other (L flank pain). denies: dysuria, frequency, incontinence, hematuria, retention Musculoskeletal: denies: neck pain, shoulder pain, arm pain, back pain, hand pain, leg pain, foot pain, other Skin: denies: rash, lesions, patrick, bruising, other Neurological: denies: weakness, numbness, incoordination, change in speech, confusion, seizures, other All other systems reviewed; all pertinent +/- noted in HPI/Subj - Medication Medications: reviewed, see transfer documents for details. Hospitalist History - Past Medical History Other Medical History: kidney stone, hld, t2dm, htn - Past Surgical History Other Surgical History: elbow, r knee surgery - Family History Family History: reports: no pertinent history - Social History Alcohol: reports: None Drugs: reports: none - Exam General Appearance: NAD, awake alert Eye: PERRL, anicteric sclera ENT: normocephalic atraumatic, no oropharyngeal lesions, moist mucosa Neck: supple, symmetric, no JVD, no thyromegaly, no lymphadenopathy, no carotid bruit Heart: RRR, no murmur, no gallops, no rubs, normal peripheral pulses Respiratory: CTAB, no wheezes, no rales, no ronchi, normal chest expansion, no tachypnea, normal percussion Gastrointestinal: soft, non-distended, normal bowel sounds, no palpable masses, no hepatomegaly, no splenomegaly, no bruit Gastrointestinal - other findings: L sided abdominal and L CVA tenderness, no guarding or peritoneal signs. Extremities: no cyanosis, no clubbing, no edema Skin: normal turgor, no lesions, no rashes Neurological: cranial nerve grossly intact, normal sensation to touch, no weakness, no focal deficits, no new deficit Musculoskeletal: normal tone, normal strength, no muscle wasting Psychiatric: normal affect, normal behavior, A&O x 3 Hospitalist Results - Labs Lab results: labs, imaging reports, ed documents from outside hospital reviewed Hospitalist H&P A/P - Plan Plan: Patient is a 49 year old male with PMH T2DM who presents as transfer from [facility] for L sided abdominal/flank pain. # L ureterovesicular junction stone w/ obstructive uropathy Pain began this afternoon, associated with nausea and vomiting, /, has a history of kidney stones. Imaging at [facility] revealed large L sided urethral stone w/ obstructive uropathy and hydronephrosis. pain somewhat responded to toradol and morphine but in general remains uncontrolled. ED physician discussed with Dr Parikh who requested patient transfer to this campus for consultation and surgical intervention likely today. - admit to floor - monitor off abx, no infection on UA - consult urology - prn pain/nausea medications - IVF # DM w/ hyperglycemia - continue home insulin lantus 60 units a day but split into 30 units twice a day - start mild sliding scale while npo, may need to increase if does not control # TORIN vs stage 2 CKD - may be due to uropathy, follow renal function # HTN # HLD PRN HTN medications, continue home medications DVT/GI ppx
[2020-01-05] MEDS ORDERED: cefTRIAXone\\ROCEPHIN 1 GM in Sodium Chloride 0.9% 100 ML IVPB SCH (06:30)
[2020-01-05] MEDS: HumaLOG 300 UNITS/3 ML VIAL SC PRN ×4 (07:26→21:35)
[2020-01-05] MEDS: Polyethylene Glycol 3350 17 GM Packet PO SCH (09:02)
[2020-01-05] MEDS: Famotidine 20 MG TAB PO SCH ×2 (09:02→21:34)
[2020-01-05] MEDS: Insulin Glargine 30 UNITS in Pre-Filled Syringe 1 EACH SC SCH ×2 (09:05→21:34)
--- NOTE | 2020-01-05 09:21 | CON ---
DATE OF CONSULTATION: 01/05/2020 REASON FOR CONSULT: Left ureteral stone. CHIEF COMPLAINT: Left flank pain. HISTORY OF PRESENT ILLNESS: This is a 49-year-old male who developed acute onset left-sided flank pain yesterday afternoon associated with nausea, radiating towards his left groin, up to 10/10. He was seen in the emergency room in [place], where workup identified a 6 mm obstructing distal left ureteral stone with a smaller stone just behind this. Pain was poorly controlled and creatinine was 1.5. He did have uncontrolled blood sugar, and for this reason was admitted to the hospitalist service. However, he did have to be transferred to [place] as appropriate equipment for treating kidney stones is not available in [place] currently. In speaking with the patient this morning, his pain has been better controlled with medications, but he does continue to have intermittent left-sided flank pain with intermittent nausea. He has only voided once overnight, but denies dysuria, suprapubic pain, or fevers. He does have a long history of recurrent stones, passing numerous stones throughout his life. He is unaware of any specific therapy that he should be following to help reduce his risk of stones. He has seen a urologist once, but does not want to return to them. He has no history of stone surgery. PAST MEDICAL HISTORY: Kidney stones, diabetes, hypertension, and hyperlipidemia. PAST SURGICAL HISTORY: Elbow and knee surgery. FAMILY HISTORY: Reviewed, noncontributory. SOCIAL HISTORY: Nonsmoker. No substance abuse. CURRENT MEDICATIONS: 1. Lisinopril. 2. Metformin. 3. Atorvastatin. REVIEW OF SYSTEMS: 12-point review of systems performed, negative except as mentioned in my HPI. PHYSICAL EXAMINATION: VITAL SIGNS: Afebrile. Vitals are stable. GENERAL: No acute distress, conversant. HEENT: Head: Normocephalic and atraumatic. Extraocular movements are intact. Sclerae are anicteric. NECK: Supple. Trachea is midline. LUNGS: Unlabored breathing. Symmetric chest expansion. HEART: Regular rate and rhythm. ABDOMEN: Soft, nontender, and nondistended. No flank tenderness or suprapubic tenderness. SKIN: Warm and dry. NEUROLOGIC: Alert and orient x3. PSYCHIATRIC: Normal mood and affect. No peripheral edema or cyanosis. LABORATORY DATA: Reviewed. Creatinine 1.55. Hemoglobin A1c 11.2. White count 7.8. Urinalysis: Negative leukocyte esterase or nitrite. IMAGING DATA: I personally reviewed his CT scan, which does show scattered stones throughout both kidneys as well as left hydronephrosis and hydroureter down to the distal ureter, where he has a 6 mm stone near the UVJ and a 2 to 3 mm stone slightly proximal. ASSESSMENT AND PLAN: 1. Obstructing left ureteral stone. 2. Bilateral renal stones. 3. Acute kidney injury. Continue IV hydration. Strain all urine. We will need to confirm that his acute kidney injury improves after treatment of the stones. He and I discussed his options at this point, and given the elevated creatinine as well as his continued pain, we have decided to proceed with ureteroscopy. I explained this procedure in detail including the expected postoperative course and the risks of bleeding, infection, pain, and inability to access or clear the stone, ureteral injury, ureteral stricture formation, and need for further procedures. I also explained that he would have a stent afterwards that he will likely remove after 3 to 5 days himself. However, this may need to remain for up to 2 or 3 weeks, at which point I would remove it in the office. He expressed understanding of the risks and the plan and wishes to proceed. COVID testing was not performed in the emergency room yesterday and so is being sent now. However, given his acute kidney injury, I am not certain that we can wait on this test. Greater than 80 minutes was spent in patient care, over half of which was spent [id number]. Job ID: [id number] [facility]
[2020-01-05] MEDS ORDERED: Insulin Glargine 15 UNITS in Pre-Filled Syringe 1 EACH SC SCH (10:30)
[2020-01-05 13:56] LABS: Anion Gap 11 mmol/L (10-20); BUN (Urea Nitrogen) 20 mg/dL (8.9-20.6); Calc. Creatinine Clearance 83 mL/min (70-130); Calcium 8.2 mg/dL (7.8-10.44); Carbon Dioxide 27 mmol/L (22-29); Chloride 104 mmol/L (98-107); Estimated GFR-MDRD 52; Glucose 218 mg/dL (70-105); Potassium 3.9 mmol/L (3.5-5.1); Sodium 138 mmol/L (136-145)
[2020-01-05 17:34] LABS: SARS-CoV-2 MS2 Positive; SARS-CoV-2 N Gene Negative; SARS-CoV-2 S Gene Negative; SARS-CoV-2 by NAA Not Detected (NotDetected); SARS-CoV-2 orf1ab Negative
[2020-01-05] MEDS ORDERED: Atorvastatin Calcium 40 MG TAB PO SCH (21:00)
[2020-01-05] MEDS ORDERED: Enoxaparin Sodium 30 MG/0.3 ML SYRINGE SC SCH (21:00)
[2020-01-05] MEDS: Pramipexole Di-HCl 1 MG TAB PO SCH (21:33)
[2020-01-06] MEDS: HumaLOG 300 UNITS/3 ML VIAL SC PRN ×2 (06:21→13:19)
[2020-01-06 06:39] LABS: #Eosinphils 0.2 thou/uL (0.0-0.7); #Lymphocytes 2.2 thou/uL (1.20-3.40); #Monocytes 0.5 thou/uL (0.11-0.59); #Neutrophils 4.5 thou/uL (1.40-6.50); %Basophils 0.6 % (0.0-1.0); %Eosinophils 2.2 % (0.0-10.0); %Lymphocytes 29.7 % (21.0-51.0); %Monocytes 6.3 % (0.0-10.0); %Neutrophils 61.2 % (42.0-75.0); Hemoglobin 14.7 g/dL (14.0-18.0); Mean Corpuscular HGB CONC 35.4 g/dL (32.0-36.0); Mean Corpuscular Hemoglobin 32.3 pg (27.0-31.0); Mean Corpuscular Volume 91.1 fL (78.0-98.0); Mean Platelet Volume 7.5 fL (7.4-10.4); Platelet Count 204 thou/uL (130-400); RBC Distribution Width 12.2 % (11.5-14.5); Red Blood Cell (RBC) Count 4.56 mill/uL (4.70-6.10); White Blood Cell (WBC) Count 7.3 thou/uL (4.8-10.8)
[2020-01-06 06:57] LABS: Anion Gap 9 mmol/L (10-20); BUN (Urea Nitrogen) 18 mg/dL (8.9-20.6); Calc. Creatinine Clearance 104 mL/min (70-130); Carbon Dioxide 28 mmol/L (22-29); Chloride 105 mmol/L (98-107); Estimated GFR-MDRD 67; Glucose 221 mg/dL (70-105); Magnesium 1.8 mg/dL (1.6-2.6); Potassium 4.4 mmol/L (3.5-5.1); Sodium 138 mmol/L (136-145)
[2020-01-06] MEDS ORDERED: Magnesium 2 GM/50 ML 2 GM in Premix Bag 1 BAG IVPB SCH (08:30)
[2020-01-06] MEDS ORDERED: FLU VACC QS2020-21(6MOS UP)/PF 60 MCG/0.5 ML SYRINGE IM ONE (09:00)
[2020-01-06] MEDS: Famotidine 20 MG TAB PO SCH (09:18)
[2020-01-06] MEDS: Pramipexole Di-HCl 1 MG TAB PO SCH (09:35)
[2020-01-06] MEDS: Polyethylene Glycol 3350 17 GM Packet PO SCH (09:35)
[2020-01-06] MEDS: Insulin Glargine 30 UNITS in Pre-Filled Syringe 1 EACH SC SCH (09:47)
[2020-01-06] MEDS ORDERED: Ondansetron PF 4 MG/2 ML Vial ONE (10:37)
[2020-01-06] MEDS ORDERED: PHENYLEPHRINE-NS 100 MCG/ML 10 ML SYRINGE ONE (10:37)
[2020-01-06] MEDS ORDERED: PROPOFOL 200 MG/20 ML VIAL ONE (10:37)
[2020-01-06] MEDS ORDERED: Iothalamate Meglumine 60% 50 ML VIAL FS ONE (11:40)
[2020-01-06] MEDS ORDERED: Fentanyl 100 MCG/2 ML VIAL ONE (11:43)
[2020-01-06] MEDS ORDERED: Levofloxacin 500 mg/D5W 100 ml Premix Bag ONE (11:51)
[2020-01-06 13:43] VITALS: TEMP 97.6
[2020-01-06 14:38] VITALS: BP 132/86
--- NOTE | 2020-01-06 15:18 | DIS ---
DATE OF ADMISSION: 01/04/2020 DATE OF DISCHARGE: 01/06/2020 DISCHARGE DISPOSITION: Home. FOLLOWUP: Follow up with primary care physician, Dr. Pritesh Padron in 1 week. Follow up with Dr. Parikh as directed. ALLERGIES: NO KNOWN DRUG ALLERGIES. THE PATIENT WAS EVALUATED ON THE DAY OF DISCHARGE. DENIES ANY NEW COMPLAINTS. NO FEVER OR CHILLS REPORTED. ABDOMINAL PAIN, CONTROLLED. BRIEF HOSPITAL COURSE: The patient is a 49-year-old male with diabetes mellitus type 2, hypertension, and renal calculi, presented to the emergency room with intractable left flank pain. His workup was consistent with left ureteral calculi. The patient was monitored on the medical floor. He was started on IV fluids along with pain medications. The patient was evaluated by Urology. He underwent cystoscopy with left ureteral stent placement. He will follow up with Dr. Parikh as outpatient. His pain is controlled at this time. The patient has been cleared by Urology for discharge. FINAL DIAGNOSES: 1. Left ureteral calculi, status post cystoscopy and stent placement. 2. Diabetes mellitus type 2. 3. Acute kidney injury on chronic kidney disease stage 2, improved with IV hydration. His creatinine at discharge is 1.1 from 1.55 on admission. 4. Hypertension. 5. Hyperlipidemia. 6. Hypomagnesemia. DISCHARGE MEDICATIONS: Discharge medications are same as admission medications. Antibiotics and pain medications have been sent directly from Dr. Parikh's office. Patients condition improved earlier than expected. Job ID: [id number] [facility]
--- NOTE | 2020-01-06 15:37 | RAD ---
LEFT RETROGRADE PYELOGRAM: HISTORY: Stent placement. FINDINGS: These are 2 C-arm images which show a left ureteral stent being placed. IMPRESSION: Left ureteral stent which appears to be in satisfactory position. POS: FRANCOIS
--- NOTE | 2020-01-06 18:18 | OP ---
DATE OF PROCEDURE: 01/06/2020 PREOPERATIVE DIAGNOSIS: Left ureteral stone. POSTOPERATIVE DIAGNOSIS: Left hydronephrosis. PROCEDURES PERFORMED: 1. Left ureteroscopy with retrograde pyelogram. 2. A 4.8 x 26 double-J ureteral stent placement with strings. ANESTHESIA: General. COMPLICATIONS: None. ESTIMATED BLOOD LOSS: None. SPECIMENS: None. DESCRIPTION OF PROCEDURE: After informed consent, the patient was taken to the operating room, transferred to the table under his own power. Anesthesia was established. Time-out was performed, showing the correct patient, site, and procedure. Preoperative antibiotics were administered. He was prepped and draped in the lithotomy position. In summary, this patient was admitted 2 days ago with obstructing distal left ureteral stones. He has continued to have intermittent pain ever since, including as recently as this morning. He initially had elevated creatinine, which has been improving over the last 48 hours. We were unable to perform his ureteroscopy yesterday due to his COVID-19 test not returning in time. His urine has been strained while in the hospital without stones being identified. The semi-rigid ureteroscope was advanced through the urethra, noting normal course and caliber of the urethra into the bladder. The left ureteral orifice was cannulated with a wire, which was passed up to the level of the renal pelvis under fluoroscopic guidance. The scope was withdrawn and reinserted alongside the wire into the distal ureter. A retrograde pyelogram was performed, showing mild hydroureter and hydronephrosis. The scope was then passed up into the proximal ureter and finally into the renal pelvis without identifying any abnormalities or stones. The scope was then carefully withdrawn. Again, noting no stones. The scope was then carefully removed and a 4.8 x 26 double-J ureteral stent placed over the wire with a curl in the kidney and curl in the bladder under fluoroscopic guidance. He was then awoken from anesthesia, transferred back to his hospital bed, and taken to PACU in stable condition, where he will discharge home upon recovery. Job ID: [id number]
== END 2020-01-06 15:13 | disposition home or self-care (01) | DRG 661 ==
LOC: 3SE 18:30
PROVIDERS: ADMIT Internal Medicine; ATTEND Internal Medicine
PROC: 0T778DZ Dilation of Left Ureter with Intraluminal Device, Via Natural or Artificial Opening Endoscopic (ICD-10-PCS; principal; 2020-01-06)
PROC: BT1FZZZ Fluoroscopy of Left Kidney, Ureter and Bladder (ICD-10-PCS; 2020-01-06)
DX: N13.2 Hydronephrosis with renal and ureteral calculous obstruction (principal); N17.9 Acute kidney failure, unspecified; Z20.828 Contact with and (suspected) exposure to other viral communicable diseases; N18.2 Chronic kidney disease, stage 2 (mild); E11.22 Type 2 diabetes mellitus with diabetic chronic kidney disease; I12.9 Hypertensive chronic kidney disease with stage 1 through stage 4 chronic kidney disease, or unspecified chronic kidney disease; E78.5 Hyperlipidemia, unspecified; E83.42 Hypomagnesemia; E11.65 Type 2 diabetes mellitus with hyperglycemia; Z87.442 Personal history of urinary calculi; Z28.21 Immunization not carried out because of patient refusal; Z79.899 Other long term (current) drug therapy; Z79.84 Long term (current) use of oral hypoglycemic drugs
CPT/HCPCS: 36415; 36416; 74420; 80048; 83735; 85025; 87086; 87635; J0696; J1650; J1815; J1885; J1956; J2405; J2704; J3010; J3475; J3490; U0003

== ENCOUNTER 2020-03-28 10:29 | Outpatient (CLI) | payer OTHER | END 2020-03-28 10:30 | disposition home or self-care (01) | LOC: DTY/OP 10:29 | PROVIDERS: ATTEND Family Medicine | DX: E11.65 Type 2 diabetes mellitus with hyperglycemia (principal); Z79.4 Long term (current) use of insulin | CPT/HCPCS: 97802 ==

== ENCOUNTER 2021-07-22 11:13 | Outpatient (CLI) | payer BC | END 2021-07-22 11:14 | disposition home or self-care (01) | LOC: SCSRAD 11:13 | PROVIDERS: ATTEND Family Medicine | DX: M54.6 Pain in thoracic spine (principal); M47.816 Spondylosis without myelopathy or radiculopathy, lumbar region; N20.0 Calculus of kidney | CPT/HCPCS: 72072; 72100 ==

== ENCOUNTER 2021-08-05 12:17 | Outpatient (CLI) | payer BC | END 2021-08-05 12:18 | disposition home or self-care (01) | LOC: SCSMRI 12:17 | PROVIDERS: ATTEND Nurse Practitioner Family | DX: M54.14 Radiculopathy, thoracic region (principal) | CPT/HCPCS: 72146 ==

== ENCOUNTER 2023-10-06 11:47 | Outpatient (CLI) | payer BC | END 2023-10-06 11:48 | disposition home or self-care (01) | LOC: SCSRAD 11:47 | PROVIDERS: ATTEND Family Medicine | DX: S92.505D Nondisplaced unspecified fracture of left lesser toe(s), subsequent encounter for fracture with routine healing (principal) ==